=== PATIENT | female | born 1945 | race Caucasian/White ===

== ENCOUNTER 2016-07-04 19:00 | Emergency (ER) | payer MEDICARE, OTHER | END 2016-07-04 21:42 | disposition home or self-care (01) | LOC: FASTR 19:00 | DX: S42.212A Unspecified displaced fracture of surgical neck of left humerus, initial encounter for closed fracture (principal); W18.09XA Striking against other object with subsequent fall, initial encounter; Y92.009 Unspecified place in unspecified non-institutional (private) residence as the place of occurrence of the external cause ==